=== PATIENT | male | born 1980 | race Caucasian/White ===

== ENCOUNTER 2023-11-20 19:21 | Emergency (ER) | payer OTHER ==
[~2023-11-20] VITALS: Ht 167.6 cm; Wt 121.1 kg
[2023-11-20 19:29] VITALS: BP 148/83; PULSE 108; RESP 22; TEMP 98.1; O2SAT 98
[2023-11-20 19:45] VITALS: TEMP 98.1
[2023-11-20 20:03] LABS: BASOPHILS % (AUTO) 0.2 % (0.0-2.0); EOSINOPHILS % (AUTO) 0.1 % (0.0-4.0); HEMATOCRIT 43.1 % (36-52); HEMOGLOBIN 14.9 g/dL (12.0-18.0); LYMPHOCYTES # (AUTO) 1.9 K/uL (2.0-11.5); LYMPHOCYTES % (AUTO) 11.1 % (20.5-51.1); MEAN CORPUSCULAR HEMOGLOBIN 30 pg (27-31); MEAN CORPUSCULAR HGB CONC 35 g/dL (33-37); MEAN CORPUSCULAR VOLUME 86.9 fL (80-94); MONOCYTES # (AUTO) 1.2 K/uL (0.8-1.0); MONOCYTES % (AUTO) 7.1 % (1.7-9.3); NEUTROPHILS % (AUTO) 81.5 % (42.2-75.2); PLATELET COUNT (AUTO) 225 K/uL (140-450); RED BLOOD CELL COUNT(AUTO) 4.96 MIL/uL (4.20-6.10); RED CELL DISTRIBUTION WIDTH 12.5 % (11.6-13.7); WHITE BLOOD COUNT (AUTO) 17.1 K/uL (4.8-10.8)
[2023-11-20 20:28] LABS: CALCIUM 8.6 mg/dL (8.5-10.1); POTASSIUM 3.8 mmol/L (3.5-5.1)
[2023-11-20 20:32] LABS: ANION GAP 15.6 (8-16); CARBON DIOXIDE 24.2 mmol/L (21-32)
[2023-11-20] MEDS: MORPHINE SULFATE 4 MG/ML SYR IVP ONE (20:47)
[2023-11-20 21:55] VITALS: BP 146/83; PULSE 98; RESP 16; O2SAT 97
[2023-11-20] MEDS ORDERED: NAPR-337 PO (21:56)
[2023-11-20] MEDS ORDERED: TRAM50TA3 PO (21:56)
== END 2023-11-20 22:04 | disposition home or self-care (01) ==
LOC: MED 19:21
DX: S22.42XA Multiple fractures of ribs, left side, initial encounter for closed fracture (principal); M54.2 Cervicalgia; R51.9 Headache, unspecified; S80.812A Abrasion, left lower leg, initial encounter; Z79.899 Other long term (current) drug therapy; W18.39XA Other fall on same level, initial encounter; Y92.89 Other specified places as the place of occurrence of the external cause; Y93.89 Activity, other specified; Y99.8 Other external cause status
CPT/HCPCS: 36415; 70450; 71260; 72125; 74177; 80048; 85025; 96374; 99285; J2270